=== PATIENT | male | born 1965 | race Two or more races ===

== ENCOUNTER 2018-06-23 17:15 | Emergency (ER) | payer OTHER ==
[~2018-06-23] VITALS: Ht 167.6 cm; Wt 72.6 kg
[~2018-06-23 17:15] MED LIST: IBUPROFEN600 MG ORAL; KEFLEX500 MG ORAL; NKM
--- NOTE | 2018-06-23 18:03 | NUR ---
ED Nurse Note: Pt came into the ER w/ complaints of right thumb laceration from work. Complaining of a 10/10 pain. Non radiating. A + O x4. Ambulatory.
[2018-06-23 18:04] VITALS: BP 145/86
[2018-06-23] MEDS ORDERED: Tetanus/Diptheria/Pertussis Vaccine 0.5ml Syr IM ONE (18:15)
[2018-06-23] MEDS ORDERED: Tylenol #3 tab (300mg/30mg) ORAL ONE (19:30)
--- NOTE | 2018-06-23 21:23 | Emergency Room Report ---
History of Present Illness General Chief Complaint: Laceration Source: Patient Present Illness HPI 52 YO Male presents to the ED c/o open laceration to the right thumb w. 5/10 in severity pain. Pt. describes a high pressure injection injury that occurred while at work. pt. reports open wound, swelling and some pain to the right thumb. pt. is right hand dominant. Pt. reports that the apparatus that caused injury was in oil injector under high pressure. Pt. reports he was seen at an urgent care and instructed to go to the ED due to the nature of his injury. Pt. reports at urgent care ( prior to ED visit) he received both Tdap and abx. injection. Denies paresthesias or loss of gross motor movement of the affected extremity. Allergies: Coded Allergies: No Known Allergies (Unverified , 09/09/12) Patient History Past Medical History: see triage record Past Surgical History: none Pertinent Family History: none Immunizations: UTD Reviewed Nursing Documentation: PMH: Agreed; PSxH: Agreed Nursing Documentation-PMH Past Medical History: No Stated History Review of Systems All Other Systems: negative except mentioned in HPI Physical Exam Vital Signs Date Time Temp Pulse Resp B/P (MAP) Pulse Ox O2 Delivery O2 Flow Rate FiO2 06/23/18 17:23 97.9 65 18 153/81 96 Room Air Sp02 EP Interpretation: reviewed, normal General Appearance: no apparent distress, alert, GCS 15, non-toxic Head: normocephalic, atraumatic Eyes: bilateral eye normal inspection, bilateral eye PERRL ENT: hearing grossly normal, normal voice Neck: full range of motion Respiratory: lungs clear, normal breath sounds, speaking full sentences Cardiovascular #1: regular rate, rhythm, normal capillary refill Musculoskeletal: gait/station normal, normal range of motion, swelling - base of the right thumb extending into the thenar aspect of the right palm., tender - TTP to the palmar aspect and proximal portion of the right 1st digit. swelling and open wound noted. Neurologic: alert, oriented x3, responsive, motor strength/tone normal, sensory intact, speech normal, grossly normal Psychiatric: judgement/insight normal Skin: normal color, no rash, warm/dry, well hydrated, laceration - High pressure injection laceration of the right 1st digit, approx 1 cm in length. - hand appears grossly contaminated. no bleeding at this time. Lymphatic: no adenopathy Medical Decision Making PA Attestation Dr. Jang is my supervising Physician whom patient management has been discussed with. Diagnostic Impression: Primary Impression: High-pressure injection injury of finger of right hand Qualified Codes: S69.81XA - Other specified injuries of right wrist, hand and finger(s), initial encounter; W29.8XXA - Contact with other powered hand tools and household machinery, initial encounter ER Course 52 YO Male presents to the ED c/o open laceration to the right thumb w. 5/10 in severity pain. Pt. describes a high pressure injection injury that occurred while at work. pt. reports open wound, swelling and some pain to the right thumb. pt. is right hand dominant. Pt. reports that the apparatus that caused injury was in oil injector under high pressure. Pt. reports he was seen at an urgent care and instructed to go to the ED due to the nature of his injury. Pt. reports at urgent care ( prior to ED visit) he received both Tdap and abx. injection. Denies paresthesias or loss of gross motor movement of the affected extremity. Ddx considered but are not limited to laceration, tendon injury, cellulitis, amputation Vital signs: are WNL, pt. is afebrile H&PE are most consistent with: High pressure injection laceration of the right thumb, approx 1 cm in length. ORDERS: none required at this time, the diagnosis is clinical ED INTERVENTIONS: - The wound was copiously irrigated with normal saline, and explored for foreign body for which no FB was found. - Tylenol #3 ( initially pt. declined pain medication, then he requested Tylenol ). DISPOSITION: Due to The nature of this injury hand specialist evaluation is needed and is being facilitated with [facility] [place]. Dr. García will be accepting this pt. to [address] [place] [address], and will continue patient management and care. Other X-Ray Diagnostic Results Other X-Ray Diagnostic Results : X-Ray ordered: Right Hand # of Views/Limited Vs Complete: 3 View Indication: Pain EP Interpretation: Yes PA Xray: Interpretation reviewed, by supervising MD, and agrees with findings. Interpretation: no dislocation, no soft tissue swelling, no fractures Impression: No acute disease Electronically Signed by: Hazel Mcknight PA-C Last Vital Signs Date Time Temp Pulse Resp B/P (MAP) Pulse Ox O2 Delivery O2 Flow Rate FiO2 2/20/19 18:04 97.9 78 20 145/86 98 Room Air Status: unchanged Disposition: XFER [facility] HOSP Condition: Serious Referrals: NOT CHOSEN IPA/,REFERRING (PCP) Hazel Mcknight Jun 23, 2018 21:23
--- NOTE | 2018-06-23 22:15 | NUR ---
ED Nurse Note: Report given to LEOBARDO Guajardo of [facility]. Patient to be admitted to [facility] under the care of MD Ricky.
[2018-06-23 22:30] VITALS: BP 145/86
--- NOTE | 2018-06-23 22:30 | NUR ---
ED Nurse Note: Patient left department with [facility]. Pt AO4. NAD. Report given to EMS.
--- NOTE | 2018-06-24 09:21 | Diagnostic Imaging Report ---
Indication: Right hand pain Technique: 3 views right hand Comparison: none Findings: No acute fractures. No dislocations. The joint spaces are preserved. Impression: Negative
== END 2018-06-23 22:35 | disposition short-term general hospital (02) ==
LOC: EMR 18:00
DX: S61.011A Laceration without foreign body of right thumb without damage to nail, initial encounter (principal); W29.8XXA Contact with other powered hand tools and household machinery, initial encounter; Y92.89 Other specified places as the place of occurrence of the external cause; Y99.0 Civilian activity done for income or pay
CPT/HCPCS: 90471; 90715; 99283